=== PATIENT | female | born 1950 | race Caucasian/White ===

== ENCOUNTER 2016-05-31 10:49 | Inpatient (IN) | payer MEDICARE, OTHER ==
[~2016-05-31] VITALS: Ht 165.1 cm; Wt 71.9 kg
--- NOTE | ~2016-05-31 | CATH ---
Cardiac Diagnostic + PCI Report Demographics Patient Name ZAKI Seals Gender Female Date of 1950 Age 66 year(s) Patient Number [id number] Date of Study 06/01/2016 Visit Number [id number] Room Number 407 Corporate ID Ht 162.56 cm Wt 58.97 kg Accession Number [id number] BSA 1.63 m kg/m Referring King Luis Alberto Vences MD Primary Physician Physician Dona Parham MD Performing King Luis Alberto Vences MD Secondary Physician Physician Cornel Rosales Diagnostic King Luis Alberto Vences MD Assisting Physician Physician Interventional Cornel NICE Physician Ethanol Operations Manager Physician Bobby Findings and Conclusions Diagnostic Findings and Conclusion Significant coronary artery disease. Diagnostic Recommendations iFR/FFR of the LAD to determine further treatment. Interventional Findings and Conclusion FFR of the LAD of .77. Successful PCI of the culprit mRCA. Interventional Recommendations Dual antiplatelet therapy. Staged PCI of the LAD in the near future. Procedure Description The patient was brought to the diagnostic cardiac catheterization laboratory in the fasting, non-sedated state. Informed consent was obtained in the written and verbal form after the risks and benefits were explained. The patient had no further questions and agreed to proceed. The planned puncture-incision site(s) were clipped and prepped with ChloraPrep and draped in the usual sterile manner. Conscious sedation, supplemental oxygen, and pain control medications were delivered by a registered nurse under physician guidance. Surface ECG rhythm, blood pressure measurement, and pulse oximetry were monitored throughout the procedure. Arterial access. The right radial access site was infiltrated with lidocaine. The vessel was entered with the Seldinger technique. A 6F sheath was advanced into the vessel and used for catheter placement. Selective left coronary angiography. A TIG catheter was advanced into the left coronary vessel ostium under Fluoroscopic guidance. Contrast was injected by hand. Images were obtained in multiple projections. Left heart catheterization with ventriculography. A catheter was advanced across the aortic valve to the left ventricle under fluoroscopic guidance. Resting hemodynamics were obtained. With the catheter at the left ventricular apex, contrast was injected. Images were obtained in COREEN projections. Post-ventriculography LV pressure was obtained. The catheter was gradually withdrawn into the aorta with continuous pressure recording. Selective right coronary angiography. An FR4 catheter was advanced into the right coronary vessel ostium under fluoroscopic guidance. Contrast was injected by hand. Images were obtained in multiple projections. iFR measurement was performed. The LAD vessel was entered with an XB3.5 guiding catheter. The iFR wire was normalized and then advanced across the lesion. Measurements were taken. Results of 0.9 and 0.89, proceeded to FFR with results of 0.77. Angioplasty and Stent Placement: An AL 0.75 guide catheter was used in the RCA. A 0.14 Prowater wire was prepped and inserted past the RCA lesion. A 2.0 x 12 Emerge balloon catheter was placed across the lesion and inflated. The balloon catheter was then removed. A 3.0 x 20 Synergy Drug Eluting Stent was placed and inflated. A 3.0 x 15 NC Emerge balloon catheter was placed across the lesion and inflated. The balloon catheter was then removed. Post placement angiograms were performed. Hemostasis: The sheath was removed and a TR Band was placed. Hemostasis was achieved. The patient was transferred to a regular nursing floor via cart accompanied by a nurse. The patient left the laboratory in stable condition. Procedure Procedure Type Diagnostic procedure:Ventriculogram:, Left, Angiography:, Coronary Angios /[facility] PCI procedure:Drug Eluting Coronary Stent:, RCA, Additional Imaging:, FFR/iFR:, Initial Vessel Indications: Non-ST elevation NC, Chest pain and Hypertension. The procedure was explained in detail to the patient. Risks, complications and alternative treatments were reviewed. Written consent was obtained. Medications Reviewed with Patient prior to Procedure. Complications: No Complication. Angiographic Findings Dominance: Right Cardiac Arteries and Lesion Findings LMCA: Abnormal. Lesion on LMCA: Distal subsection.30% stenosis . LAD: Abnormal. Lesion on Prox LAD: 70% stenosis . Devices used - VERRATA. Number of passes: 1. LCx: Normal (0% Stenosis). RCA: Abnormal. Lesion on Mid RCA: 95% stenosis 20 mm length reduced to 0%. Pre procedure LU III flow was noted. Post Procedure LU III flow was present. The guidewire cross was successful.The lesion was diagnosed as a high risk lesion.Culprit lesion. Devices used - PROWATER WIRE 0.014" X 180CM. Number of passes: 1. - CATH BAL RX EMERGE 2.0X12. 1 inflation(s) to a max pressure of: 10 ally. - CATH STENT SYNERGY 3.0 X 20. 1 inflation(s) to a max pressure of: 16 ally. - CATH BAL RX NC EMERGE 3.0X15. 1 inflation(s) to a max pressure of: 18 ally. Ramus: Abnormal. Lesion on Ramus: Proximal subsection.80% stenosis .The lesion was diffuse. Coronary Tree Procedure Data Procedure Date Date: 06/01/2016Start: 10:40 End: 11:57 Entry Locations - Percutaneous access was performed through the Right Radial artery (Primary location). A 6 Fr sheath was inserted. Hemostasis was successfully obtained using a TR band. Procedure Medications Order and Administration + + +---------+---------+ !Time !Medication !Dosage !Route ! + + +---------+---------+ !06/01/2016 !Versed !2 mg !I.V. ! !10:36 ! ! ! ! + + +---------+---------+ !06/01/2016 !Fentanyl !50 mcg !I.V. ! !10:36 ! ! ! ! + + +---------+---------+ 06/01/2016 !Sodium Chloride !10 ml !I.V. ! !10:36 ! ! ! ! + + +---------+---------+ !06/01/2016 !Versed !1 mg !I.V. ! !10:42 ! ! ! ! + + +---------+---------+ !06/01/2016 !Fentanyl !25 mcg !I.V. ! !10:42 ! ! ! ! + + +---------+---------+ !06/01/2016 !SF Radial Cocktail: 200mcg Nitro, 2.5 mg! !I.A. ! !10:43 !Verapamil, 5000u Heparin ! ! ! + + +---------+---------+ !06/01/2016 !Versed !1 mg !I.V. ! !10:44 ! ! ! ! + + +---------+---------+ !06/01/2016 !Fentanyl !25 mcg !I.V. ! !10:44 ! ! ! ! + + +---------+---------+ !06/01/2016 !Oxygen !2 l/min !NC ! !10:49 ! ! ! ! + + +---------+---------+ !06/01/2016 !Heparin (ACC_3) !2000 !I.V. ! !11:01 ! !units ! ! + + +---------+---------+ !06/01/2016 !Sodium Chloride !10 ml !I.V. ! !11:01 ! ! ! ! + + +---------+---------+ !06/01/2016 !Versed !1 mg !I.V. ! !11:07 ! ! ! ! + + +---------+---------+ !06/01/2016 !Fentanyl !25 mcg !I.V. ! !11:07 ! ! ! ! + + +---------+---------+ !06/01/2016 !Adenosine (IV) !9 mg !I.V. ! !11:14 ! ! ! ! + + +---------+---------+ !06/01/2016 !Heparin (ACC_3) !1500 !I.V. ! !11:22 ! !units ! ! + + +---------+---------+ !06/01/2016 !Brilinta (Ticagrelor) (ACC_20) !180 mg !P.O. ! !11:24 ! ! ! ! + + +---------+---------+ !06/01/2016 !Nitroglycerin !200 mcg !I.V. drip! !11:28 ! ! ! ! + + +---------+---------+ !06/01/2016 !Nitroglycerin !200 mcg !I.V. drip! !11:34 ! ! ! ! + + +---------+---------+ !06/01/2016 !Heparin (ACC_3) !1500 !I.V. ! !11:44 ! !units ! ! + + +---------+---------+ Devices Used - A6 Fr6F TIG CATHETERwas used for:LeftsideCoronary Angios. - A6 FrCATH 6F FR4 CATHETER 100CMwas used for:RightsideCoronary Angios. - A6 FrGUIDE CATHETER 6FR XB 3.5 100CMwas used for:LeftsideFractional Flow Murray measurments. - A6 FrGUIDE CATHETER 6FR AL .075 100CMwas used for:RightsideRCA Intervention. Fluoroscopy Time: Diagnostic: 9:54 minutes. Total: 9:54 minutes. Fluoroscopy Dose: Diagnostic: 506 mGy. Total: 506 mGy. Estimated Blood Loss: 12 ml. Medical History Allergies - No known allergies. Risk Factors The patient risk factors include:treated hypercholesterolemia, treated hypertension, last creatinine: 0.8 mg/dl, creatinine clearance: 62.65 ml/min, dyslipidemia and former tobacco use. Admission Data Admission Date: 06/01/2016 Admission Time: 11:40 Insurance Payors: Medicare. Clinical Evaluation Leading to Procedure Diagnosed on 06/01/2016 10:37 . - The patient's CAD presentation was assessed as: Non-STEMI. - The patient has been in a state of heart failure within the past two weeks. Hemodynamics Condition: Rest O2 Consumption: Estimated: 165.01Heart Rate: 93 bpm Pressures (mmHg) +-----+ + !Site !Pressure ! +-----+ + !AO !118/59 (87) ! +-----+ + !LV !140/-1 ,4 ! +-----+ + !AO !130/65 (96) ! +-----+ + !LV !135/-1 ,4 ! +-----+ + Valve Gradients and Areas + +---------+---------+---------+ +---------+ + !Valve !Peak !Mean !Area !Index !Flow !Source ! + +---------+---------+---------+ +---------+ + !Aortic !0 !0 ! ! ! ! ! + +---------+---------+---------+ +---------+ + !Aortic !0 !0 ! ! ! ! ! + +---------+---------+---------+ +---------+ + Shunts Oxygen Values O2 Capacity 180.88 O2 Consumption 165.01 Discharge Data Discharge Date: 06/02/2016 Hospital Status: Inpatient Signatures
--- NOTE | ~2016-05-31 | ECH ---
Transthoracic Echocardiography Report (TTE) Demographics Patient Name TARUN HAINES Date of Study 05/31/2016 Patient Number [id number] Visit Number [id number] Date of 1950 Room Number 407 Accession Number [id number] Gender Female Age 66 year(s) Referring Dona Parham Mannequin Wig Maker Jennifer Qureshi [facility] Physician Physician Interpreting King Luis Alberto Vences MD Finished Carpet Inspector Physician Supervising Ordering Physician King Luis Alberto Vences MD, MD/P Nurse Stress Fire Eater Conclusions Summary Technically fair exam. The estimated left ventricular ejection fraction is 60-65%. Mild concentric left ventricular hypertrophy. Diastolic assessment reveals Grade I diastolic dysfunction. There is trivial aortic regurgitation by color Doppler. No other significant valvular abnormalities. Procedure Type of Study TTE procedure:Echo Complete SF. Procedure Date Date: 05/31/2016 Start: 05:57 PM Technical Quality: Adequate visualization Indications:Chest pain. Appropriate Use Criteria: 9 Height: 64 inches Weight: 130 pounds BSA: 1.63 m Rhythm: NSR HR: 72 bpm BP: 158/84 mmHg M-Mode/2D Measurements LV Diastolic Dimension: 3.88 cm LV Systolic Dimension: 2.34 cm LV Septum Diastolic: 1.23 cm LV PW Diastolic: 1.23 cm AO Root Dimension: 2.12 cm Cardiac Output: 2.33 l/min LA Dimension: 3.23 cm Cardiac Index: 1.43 l/min*m RV Diastolic Dimension: 2.55 cm LA volume index: 25 ml/m LVOT: 1.79 cm LVOT VTI: 12.86 cm RV Base: 2.66 cm LV Stroke volume: 32.35 ml RV Mid: 1.5 cm LV Stroke volume index: 19.85 ml/m RV Length: 6.2 cm Doppler Measurements AV Peak Velocity: 1.3 m/s MV Peak E-Wave: 0.64 m/s AV Peak Gradient: 6.76 mmHg MV Peak A-Wave: 0.82 m/s AV Mean Gradient: 4.74 mmHg MV E/A Ratio: 0.78 LVOT Peak Velocity: 0.6 m/s MV P1/2t: 57.3 msec AV Area (Continuity):1.12 cm MV Deceleration Time: 211.3 msec MV Area (PHT): 3.84 cm RA Area: 11.19 cm Findings Left Ventricle The left ventricle is normal in size . Mild concentric left ventricular hypertrophy. Diastolic assessment reveals Grade I diastolic dysfunction. Right Ventricle Normal right ventricle structure and function. Left Atrium Normal left atrial size. Right Atrium Normal right atrial size. Mitral Valve Normal mitral valve structure and function. Trivial mitral regurgitation by color Doppler. Aortic Valve Normal aortic valve structure and function. There is trivial aortic regurgitation by color Doppler. Tricuspid Valve Normal tricuspid valve structure and function. Trivial tricuspid regurgitation by color Doppler. Pulmonic Valve The pulmonic valve is not well visualized. Pericardial Effusion No evidence of pericardial effusion. Miscellaneous Visualized portions of the aortic root and ascending aorta appear normal in size. Pleural Effusion No evidence of pleural effusion. Signature
[2016-06-03] MEDS ORDERED: COZAAR DPS50 MG PO (10:10)
[2016-06-03] MEDS ORDERED: HCTZ12.5 MG PO (10:10)
[2016-06-03] MEDS ORDERED: KLONOPIN DPS0.5 MG PO ×2 (10:10→10:12)
[2016-06-03] MEDS ORDERED: ASA CHILDREN'S81 MG PO (10:11)
[2016-06-03] MEDS ORDERED: CALCIUM500 MG PO (10:12)
[2016-06-03] MEDS ORDERED: VALTREX DPS1 GM PO (10:12)
[2016-06-03] MEDS ORDERED: DEXILANT60 MG PO (10:12)
[2016-06-03] MEDS ORDERED: FLEXERIL-DPS10 MG PO (10:12)
[2016-06-03] MEDS ORDERED: LIPITOR40 MG PO (10:13)
[2016-06-03] MEDS ORDERED: BRILINTA90 MG PO (10:13)
[2016-06-03] MEDS ORDERED: AMLODIPINE BESYL5 MG PO (10:13)
[2016-06-03] MEDS ORDERED: LOPRESSOR DPS50 MG PO (10:14)
[2016-06-03] MEDS ORDERED: TYLENOL DPS325 MG PO (10:14)
[2016-06-03] MEDS ORDERED: NITROSTAT0.4 MG SL (10:14)
--- NOTE | 2016-06-04 14:07 | CO ---
ADMIT: 05/31/2016 RM/LOC: 407 [facility] MR#: [id number] 26[address] [facility] [address] [place] [id number] TARUN HAINES Arnel [address] [place] [address] Consultation SEX: F AGE: 66 : 1950 DATE OF CONSULTATION: 06/01/2016 ATTENDING PHYSICIAN: Bailee Carcamo CONSULTING PHYSICIAN: Luis Alberto Bhat MD CHIEF COMPLAINT: Chest pain. HISTORY OF THE PRESENT ILLNESS: The patient is a 66-year-old female who has a prior history of coronary artery disease which was diagnosed in 1998 by heart catheterization. She had been doing well until recently. In the last couple of months, she noticed some occasional chest tightness. This would occur often times more with activity than at rest. The symptoms progressed to the point now where she is having it fairly frequently with activity. She had been seen in the lipid clinic in [place], and was scheduled to have a stress test on Thursday. She went and exercised yesterday and states that she began having severe chest pain and at that time, was told to come to the hospital for further evaluation. She was subsequently admitted and we are seeing her for further evaluation. She does have an equivocal troponin of 0.048. Because of these symptoms, we are seeing her for further evaluation. She had no other complaints. PAST MEDICAL HISTORY: 1. Significant for heart catheterization in 1998 with what sounds like some left main and LAD disease. 2. Hypertension. 3. Hyperlipidemia. 4. Reflux. 5. Anxiety. HOME MEDICATIONS: Include: 1. Pravastatin 10 mg daily. 2. Losartan 50 mg daily. 3. Hydrochlorothiazide 12.5 mg daily. 4. Aspirin 81 mg daily. 5. Lisinopril 5 mg daily. 6. Clonazepam 0.5 mg as needed. 7. Cyclobenzaprine 5 mg every 8 hours as needed. 8. Valacyclovir 1 g twice daily as needed. 9. Calcium 500 mg daily. 10.Dexilant 60 mg daily. FAMILY HISTORY: Significant for father who has heart disease and had bypass surgeries 2 separate times. Mother had of breast cancer at age 64. SOCIAL HISTORY: The patient is . She has a previous history of smoking, but quit quite some time ago. She has very rare alcohol use. REVIEW OF SYSTEMS: GENERAL: Denies fever, chills, sweats, rash, or weight ADMIT: 05/31/2016 RM/LOC: 407 [facility] MR#: [id number] [address] [address] TARUN HAINES [address] [place] [address] Consultation SEX: F AGE: 66 : 1950 loss. She does have some occasional fatigue. EYES: Denies double vision, blurred vision, cataracts, or glaucoma. ENT: Denies hearing loss or problems with nose, mouth or throat. PULMONARY: Denies cough, sputum production, asthma, emphysema or bronchitis. Denies snoring loudly, wakefulness at night, or fatigue upon awakening. GASTROINTESTINAL: Denies heartburn or difficulty swallowing. No change in bowel habits. Denies dark or bloody stools. No history of ulcers, hiatal hernia, or gallbladder or liver disease. GENITOURINARY: Denies dysuria, hematuria, nocturia, urinary tract infection, or kidney stones. Denies history of renal insufficiency or failure. MUSCULOSKELETAL: Denies history of arthritis or gout. Denies muscle or joint pains. ENDOCRINE: Denies history of thyroid dysfunction or diabetes. HEMATOLOGIC: Denies history of anemia, easy bruising, or cancer. NEUROLOGIC: Denies chronic headaches, dizziness, syncope, stroke, seizures or numbness or tingling. PSYCHIATRIC: Denies history of mental illness or feelings of depression. She has had recent chest pain, shortness of breath, and occasional back pain. PHYSICAL EXAMINATION: VITAL SIGNS: Blood pressure was 160/82, heart rate is 71, respirations 14, and temperature 96.8 degrees Fahrenheit. SKIN: [place], warm and dry. EYES: Sclerae clear. No xanthelasmas. ENT: Oral mucosa is pink and moist. No jugular venous distention or carotid bruits. CHEST: Respirations are even and unlabored. Lungs are clear to auscultation. HEART: Regular rate and rhythm. Normal S1, S2. No murmurs, rubs or gallops. ABDOMEN: Soft and nontender. MUSCULOSKELETAL: Gait is normal. EXTREMITIES: Peripheral pulses palpable. No clubbing, cyanosis or edema. PSYCHIATRIC: Alert and oriented. Mood and affect are appropriate. ASSESSMENT: ADMIT: 05/31/2016 RM/LOC: 407 [facility] MR#: [id number] [address] [address] TARUN HAINES [address] [place] [address] Consultation SEX: F AGE: 66 : 1950 1. Chest pain. 2. History of coronary artery disease. 3. Hypertension. PLAN: Due to the patient's concerning symptoms and the fact that she has had a previous history of coronary disease, I think our best plan is to have her undergo heart catheterization. We will plan on doing this today. She will also need continued risk factor management. We will decide further treatment once this was completed. We did do an echocardiogram, which shows a normal ejection fraction and wall motion as well as normal valvular structure and function. Luis Alberto Bhat MD/ rae JOB #: [id number] CC: Bailee Caracmo, Attending Physician Bailee Carcamo, Family Physician Jurgen Esposito MD
--- NOTE | 2016-06-05 07:22 | HP ---
ADMIT: 05/31/2016 RM/LOC: 407 [facility] MR#: [id number] [address] [address] ZAKIALISONTARUN D [address] [place] [address] History and Physical SEX: F AGE: 66 : 1950 DATE OF SERVICE: CHIEF COMPLAINT: Chest pain. BRIEF HISTORY OF PRESENT ILLNESS: The patient is a 66-year-old female with a history of coronary artery disease on a heart catheterization in 1998 in [place], who presents with two months of worsening chest pressure and aching back with exertion. She noted some of this achy back and chest pain intermittently over the last two months. It is usually with exertion, but she believes sometimes it also occurs at rest. She has been passing it off as indigestion and musculoskeletal pain. However, over the last few weeks, she has noticed that it has been increasingly severe with exertion and is relieved with rest. She goes to the Lipid Clinic in [facility] that is run by [facility] was there last week and expressed her concerns to the control room supervisor there at that time. He set her up with a treadmill stress test for Thursday, which is in two days. She has not been active like normal at the gym for the last week due to company being in town, so today she went to the gym to walk on the treadmill. She states she only had about 2 miles/hour, but noticed the onset of this chest pressure and discomfort and aching bilateral shoulders that worsened during her exercise. She was able to last about 10 minutes, but the pain was so severe. She actually called the clinic from the gym and they sent her into the ER for further evaluation. In the ER, 1 inch of nitroglycerin paste relieved her pain. She was noted to have a troponin of 0.048 and MB of 4.6. Given her history and her constellation of symptoms, she was admitted for cardiac rule out. PAST MEDICAL HISTORY: Heart catheterization in April of 1998 with a 50% left main lesion and a 25% to 50% LAD lesion, GERD, hypertension, hyperlipidemia, and anxiety. FAMILY HISTORY: The patient's father has heart disease and has had bypass x2. Mother of breast cancer at 64. SOCIAL HISTORY: The patient is . Has a history of smoking one pack per day, but quit over two decades ago. Rarely drinks alcohol. MEDICATIONS: 1. Pravastatin 10 mg daily. 2. Losartan 50 mg daily. 3. Clonazepam 0.5 mg as needed. 4. Hydrochlorothiazide 12.5 mg daily. 5. Aspirin 81 mg daily. 6. Cyclobenzaprine 5 mg q.8 hours p.r.n. 7. Valacyclovir 1 g twice daily as needed. 8. Calcium 500 mg daily. 9. Dexilant 60 mg daily. 10.Lisinopril 5 mg daily. REVIEW OF SYSTEMS: The patient denies any fevers, chills, dizziness, ADMIT: 05/31/2016 RM/LOC: 407 [facility] MR#: [id number] [address] [place] [phone] TARUN HAINES [address] [place] [address] History and Physical SEX: F AGE: 66 : 1950 weakness, or fatigue. No headaches or vision changes. Denies any palpitations. Does endorse chest pain as discussed above. Does have a history of GERD, but denies any reflux symptoms at this time. No nausea, vomiting, diarrhea, or abdominal pain. No urinary problems. No numbness, tingling, or weakness. PHYSICAL EXAMINATION: VITAL SIGNS: Temp 98.1, heart rate 71, respirations 18, blood pressure 158/84, and O2 saturation 100% on room air. GENERAL: The patient is in no acute distress. Awake, alert, and oriented x3. HEENT: Normocephalic and atraumatic. EOMI. Mucous membranes are moist. NECK: No lymphadenopathy. No bruits auscultated. No JVD noticed. CARDIOVASCULAR: Regular rhythm and rate. No murmurs, rubs, or gallops. Radial pulses and DP pulses are 2+ bilaterally. PULMONARY: Clear to auscultation bilaterally. CHEST: Nontender with no deformities. ABDOMEN: Soft, nontender, and nondistended. Normoactive bowel sounds. EXTREMITIES: Showed no clubbing, cyanosis, or edema. NEUROLOGIC: Cranial nerves II through XII grossly intact. No focal neurological deficits. MUSCULOSKELETAL: Normal range of motion. No tenderness on palpation of the shoulders, chest, or rib cage. Spontaneously moves all extremities. LABS AND IMAGING: White count 4.8, hemoglobin 14.1, and platelets 253. BMP is normal except for a GFR of 66. CK is 333 and MB is 4.6. Troponin 0.048. ASSESSMENT AND PLAN: 1. Angina. The patient basically had a positive stress test at the gym today on the treadmill. We will go ahead and admit to trend out her enzymes and consult Cardiology and see if they would like to do a nuclear stress test or just proceed with a catheterization given her known history and her worsening anginal symptoms. 2. Known coronary artery disease. 3. Hypertension. 4. Hyperlipidemia. Yahir Bingham MD Resident / Jurgen Esposito MD / rae JOB #: [id number] CC: Bailee Carcamo, Attending Physician Bailee Carcamo, Family Physician
--- NOTE | 2016-06-05 16:13 | ER ---
ADMIT: 05/31/2016 RM/LOC: 407 [facility] MR#: [id number] 26[address] [facility] [address] TARUN HAINES [address] [place] [address] Emergency Room Report SEX: F AGE: 66 : 1950 DATE: 05/31/2016 ADDENDUM: A 66-year-old white female coming in with chest pain. She has known coronary disease. She was supposed to be scheduled for a stress test Cardiolite sometime next week or so, but pain has gotten progressively worse with exertion over the last couple of days. CBC and chemistry are negative. EKG is negative. Her troponin has a bump of 0.048. MB also is a bump at 4.6. At this time after speaking with Dr. Esposito, I spoke with Dr. Bingham and he will need to admit as a rule out. CONDITION ON DISCHARGE: Good. Johnny Wong MD/ rae JOB #: [id number] CC: Bailee Carcamo MD, Attending Physician Bailee Carcamo MD, Family Physician
--- NOTE | 2016-06-25 08:00 | DS ---
ADMIT: 06/01/2016 RM/LOC: 407 [facility] MR#: [id number] [address] [id number] TARUN MCCORMICK [address] [place] [address] General Discharge Summary SEX: F AGE: 66 : 1950 ADMISSION DATE: 06/01/2016 DISCHARGE DATE: 06/02/2016 FINAL DIAGNOSES: 1. Coronary artery disease with unstable angina. 2. Hypertension. 3. Hyperlipidemia. PROCEDURE: PTCA to the LAD by Cardiology. HOSPITAL COURSE: The patient was admitted with chest pain. Cardiac enzymes were elevated and Cardiology was consulted. She was taken to the labor conciliator on 06/01 and had a drug-eluting stent placed in the RCA. There was also a finding of LAD stenosis with plans to treat that in the future. On 06/02, she was stable, had no chest pain, cardiac enzymes were trending down, and her electrolytes were normal. Blood pressures were stable and she was on room air. Cardiology saw her as well and plan to follow up as an outpatient. She was dismissed. She will follow up with Cardiology on Thursday, July 16, with Dr. Bhat and also see the nurse practitioner on June 11 and follow up. Medications on dismissal are: 1. Aspirin 81 mg daily. 2. Brilinta 90 mg b.i.d. 3. Cozaar 50 mg daily. 4. Hydrochlorothiazide 12.5 mg daily. 5. Klonopin 0.5 mg b.i.d. 6. Lipitor 40 mg at bedtime. 7. Lopressor 25 mg b.i.d. 8. Norvasc 5 mg at bedtime. 9. Calcium supplement 500 mg once a day. 10.Dexilant 60 mg daily. She also has p.r.n. Flexeril, Klonopin, Tylenol. She carries nitroglycerin with her as well in case of angina. No vaccines were given. She will follow up with myself as needed and with Cardiology as planned and stated above. Bailee Carcamo MD/ rae JOB #: [id number] CC: Bailee Carcamo MD, Attending Physician Bailee Carcamo MD, Family Physician
== END 2016-06-02 12:50 | disposition home or self-care (01) | DRG 247 ==
LOC: ER 10:49 → 4PCU 13:50
PROVIDERS: ADMIT Family Medicine
PROC: B2111ZZ Fluoroscopy of Multiple Coronary Arteries using Low Osmolar Contrast (ICD-10-PCS; principal; 2016-06-01)
PROC: 4A033BC Measurement of Arterial Pressure, Coronary, Percutaneous Approach (ICD-10-PCS; principal; 2016-06-01)
PROC: B2151ZZ Fluoroscopy of Left Heart using Low Osmolar Contrast (ICD-10-PCS; principal; 2016-06-01)
PROC: 027034Z Dilation of Coronary Artery, One Artery with Drug-eluting Intraluminal Device, Percutaneous Approach (ICD-10-PCS; principal; 2016-06-01)
PROC: 4A023N7 Measurement of Cardiac Sampling and Pressure, Left Heart, Percutaneous Approach (ICD-10-PCS; principal; 2016-06-01)
DX: I25.110 Atherosclerotic heart disease of native coronary artery with unstable angina pectoris (principal); I10 Essential (primary) hypertension; K21.9 Gastro-esophageal reflux disease without esophagitis; E78.5 Hyperlipidemia, unspecified; F41.9 Anxiety disorder, unspecified; Z82.49 Family history of ischemic heart disease and other diseases of the circulatory system; Z87.891 Personal history of nicotine dependence; Z98.61 Coronary angioplasty status; Z79.82 Long term (current) use of aspirin